=== PATIENT | female | born 1970 | race Two or more races ===

== ENCOUNTER 2017-10-28 05:17 | Inpatient (IN) | payer OTHER ==
[~2017-10-28] VITALS: Ht 157.5 cm; Wt 68.9 kg
[2017-10-28] VITALS (7 sets, daily range): BP systolic 102–116; BP diastolic 67–76
[2017-10-28] MEDS ORDERED: KETOROLAC TROMETHAMINE INJ 30 MG/ML VIAL ONE (06:00)
[2017-10-28] MEDS ORDERED: BUPIVACAINE 0.5 % PF 150 MG/30 ML VIAL ONE (06:00)
[2017-10-28] MEDS ORDERED: ANESTHESIA TRAY IN PYXIS 1 EA TRAY MC ONE (06:00)
[2017-10-28] MEDS ORDERED: BACITRACIN 50000 UNITS/VIAL ONE (06:01)
[2017-10-28] MEDS ORDERED: CEFAZOLIN SODIUM/DEXTROSE,ISO 100 ML IV ONE (06:09)
[2017-10-28] MEDS ORDERED: oxyCODONE HCL SR 10MG TAB.SR.12H PO ONE (06:09)
[2017-10-28] MEDS ORDERED: CELECOXIB 100 MG CAPSULE ONE (06:09)
[2017-10-28] MEDS ORDERED: MORPHINE SULFATE/PF 10 MG/10ML (1MG/ML) AMPUL ONE (06:33)
[2017-10-28] MEDS ORDERED: TRANEXAMIC ACID 3,000 MG in SODIUM CHLORIDE IRRIG SOLUTION 70 ML IR ONE (07:30)
[2017-10-28] MEDS ORDERED: DOCUSATE SODIUM 250 MG CAPSULE PO PRN (12:39)
[2017-10-28] MEDS: HYDROMORPHONE INJ 0.5 MG/0.5 ML SYRINGE IV PRN ×4 (12:42→22:38)
[2017-10-28] MEDS ORDERED: BISACODYL SUPP (10 MG) 10 MG/SUPP.RECT SUPP.RECT RC PRN ×2 (13:00→14:00)
[2017-10-28] MEDS ORDERED: ZOLPIDEM TARTRATE 5 MG TABLET PO PRN (13:00)
[2017-10-28] MEDS ORDERED: SENNOSIDES 8.6 MG TABLET PO PRN (13:00)
[2017-10-28] MEDS ORDERED: NALOXONE HCL 0.4 MG/ML AMPUL IV PRN ×2 (13:00→14:00)
[2017-10-28] MEDS ORDERED: CLONIDINE HCL 0.1 MG TABLET PO PRN (14:00)
[2017-10-28] MEDS ORDERED: MENTHOL/CETYLPYRD (CEPACOL) 1 LOZ LOZENGE MM PRN (14:00)
[2017-10-28] MEDS ORDERED: METOCLOPRAMIDE HCL 10 MG TABLET PO PRN (14:00)
[2017-10-28] MEDS ORDERED: MAGNESIUM HYDROXIDE 30 ML UDC PO PRN (14:00)
[2017-10-28] MEDS ORDERED: diphenhydrAMINE HCL 25 MG CAPSULE PO PRN (14:00)
[2017-10-28] MEDS ORDERED: PROMETHAZINE HCL 25 MG/ML AMPUL IM PRN (14:30)
[2017-10-28] MEDS: IV D5/0.45 NACL 1,000 ML IV PRN (15:08)
[2017-10-28] MEDS: CEFAZOLIN SODIUM 1 GM in IV SODIUM CHLORIDE 0.9% 50 ML IV SCH ×2 (15:59→22:34)
[2017-10-28] MEDS: DOCUSATE SODIUM 100 MG CAPSULE PO SCH (16:02)
[2017-10-28] MEDS: FAMOTIDINE/PF INJ 20 MG/2 ML VIAL IV SCH (21:00)
[2017-10-28] MEDS: methylPREDNISolone SOD SUCC 40 MG/ML VIAL IV SCH (21:00)
[2017-10-28] MEDS ORDERED: MORPHINE SULFATE INJ 4 MG/ML DISP.SYRIN ONE (21:49)
[2017-10-28] MEDS ORDERED: PANTOPRAZOLE 40 MG TABLET.DR PO SCH (22:00)
[2017-10-29] VITALS: BP 112/70
[2017-10-29] MEDS: IV D5/0.45 NACL 1,000 ML IV PRN (00:59)
[2017-10-29] MEDS: HYDROMORPHONE INJ 0.5 MG/0.5 ML SYRINGE IV PRN ×3 (01:12→06:01)
[2017-10-29 04:00] VITALS: BP 125/80
[2017-10-29] MEDS: ASPIRIN 325 MG TABLET PO SCH ×2 (07:22→18:06)
[2017-10-29 08:00] VITALS: BP 111/70
[2017-10-29] MEDS ORDERED: HYDROCODONE/APAP 10/325MG 1 EA TABLET PO PRN ×2 (08:00→12:00)
[2017-10-29] MEDS ORDERED: oxyCODONE IR immediate release 5 MG PO PRN ×2 (08:00→12:00)
[2017-10-29] MEDS ORDERED: MORPHINE SULFATE INJ 4 MG/ML DISP.SYRIN IM PRN ×2 (08:00→12:00)
[2017-10-29 08:01] LABS: HEMOGLOBIN 12.2 g/dL (11.5-14.8)
[2017-10-29] MEDS: FAMOTIDINE/PF INJ 20 MG/2 ML VIAL IV SCH ×2 (09:00→21:04)
[2017-10-29] MEDS: methylPREDNISolone SOD SUCC 40 MG/ML VIAL IV SCH (09:42)
[2017-10-29] MEDS: DOCUSATE SODIUM 100 MG CAPSULE PO SCH ×2 (09:42→18:06)
[2017-10-29 10:39] LABS: CALCIUM, SERUM 8.7 mg/dL (8.5-10.1); CREATININE 0.7 mg/dL (0.6-1.3); POTASSIUM 4.3 mmol/L (3.5-5.1)
[2017-10-29] MEDS ORDERED: HYDROMORPHONE 1 MG/1 ML DISP.SYRIN SQ PRN (11:30)
[2017-10-29] MEDS ORDERED: HYDROMORPHONE INJ 2 MG/ML DISP.SYRIN IV PRN (12:30)
[2017-10-29] MEDS: HYDROCODONE/APAP 10/325MG 1 EA TABLET PO SCH ×2 (14:49→18:06)
[2017-10-29 16:00] VITALS: BP 125/83
[2017-10-29] MEDS: HYDROMORPHONE INJ 2 MG/ML DISP.SYRIN IV PRN ×2 (16:22→19:39)
[2017-10-29 20:00] VITALS: BP 119/77
[2017-10-29] MEDS: oxyCODONE IR immediate release 5 MG PO PRN (21:24)
[2017-10-29] MEDS ORDERED: SCOPOLAMINE HBR 1 EA PATCH.TD72 TD PRN (22:00)
[2017-10-29] MEDS ORDERED: ALPRAZOLAM 0.25 MG TABLET PO PRN (22:00)
[2017-10-29] MEDS ORDERED: MAG HYDROX/AL HYDROX/SIMETH 30 ML UDC PO PRN (22:00)
[2017-10-30] MEDS: HYDROMORPHONE INJ 2 MG/ML DISP.SYRIN IV/SQ PRN ×2 (00:48→04:16)
[2017-10-30] MEDS: oxyCODONE IR immediate release 5 MG PO PRN ×4 (05:15→19:00)
[2017-10-30 07:19] LABS: BASOPHILS % (AUTO) 0.2 % (0.0-2.0); EOSINOPHILS # (AUTO) 0.1 /CMM (0.0-0.7); EOSINOPHILS % (AUTO) 1.5 % (0.0-6.0); HEMATOCRIT 34 % (33-45); HEMOGLOBIN 11.6 g/dL (11.5-14.8); LYMPHOCYTES # (AUTO) 2.7 /CMM (0.8-4.8); LYMPHOCYTES % (AUTO) 35.3 % (20.0-44.0); MEAN CORPUSCULAR HEMOGLOBIN 31 PG (26.0-33.0); MEAN CORPUSCULAR HGB CONC 34 g/dl (31.0-36.0); MEAN CORPUSCULAR VOLUME 89 fL (82-100); MONOCYTES # (AUTO) 0.9 /CMM (0.1-1.30); MONOCYTES % (AUTO) 11.7 % (2.0-12.0); NEUTROPHILS # (AUTO) 3.9 /CMM (1.8-8.9); NEUTROPHILS % (AUTO) 51.3 % (43.0-81.0); PLATELET COUNT (AUTO) 217 /CMM (150-450); RDW COEFFICIENT OF VARIATION 13.4 (11.5-15.0); WHITE BLOOD COUNT (AUTO) 7.6 K/uL (4.3-11.0)
[2017-10-30] MEDS: HYDROMORPHONE INJ 0.5 MG/0.5 ML SYRINGE IV/SQ PRN ×4 (07:37→19:35)
[2017-10-30 07:49] LABS: CALCIUM, SERUM 8.4 mg/dL (8.5-10.1); CREATININE 0.7 mg/dL (0.6-1.3); MAGNESIUM 2.2 mg/dL (1.8-2.4); PHOSPHORUS 3.1 mg/dL (2.5-4.9); POTASSIUM 3.7 mmol/L (3.5-5.1)
[2017-10-30 08:00] VITALS: BP 110/70
[2017-10-30] MEDS ORDERED: FAMOTIDINE (20 MG) 20 MG TABLET PO SCH (09:00)
[2017-10-30] MEDS ORDERED: predniSONE 20 MG TABLET PO SCH (09:00)
[2017-10-30] MEDS: DOCUSATE SODIUM 100 MG CAPSULE PO SCH ×2 (09:55→16:33)
[2017-10-30] MEDS: ASPIRIN 325 MG TABLET PO SCH ×2 (09:55→16:33)
[2017-10-30] MEDS ORDERED: OXYC-128 PO (13:42)
[2017-10-30 16:00] VITALS: BP 121/76
== END 2017-10-30 20:00 | disposition home or self-care (01) | DRG 470 ==
LOC: DS 05:17 → MED 09:41 → TELE 22:09 → MED 10-29 09:23
PROVIDERS: ADMIT Specialist; ATTEND Specialist
PROC: 0SRC0J9 Replacement of Right Knee Joint with Synthetic Substitute, Cemented, Open Approach (ICD-10-PCS; principal; 2017-10-28 06:30)
DX: M17.11 Unilateral primary osteoarthritis, right knee (principal); E66.9 Obesity, unspecified; F41.9 Anxiety disorder, unspecified; J45.909 Unspecified asthma, uncomplicated; Z79.82 Long term (current) use of aspirin; Z96.659 Presence of unspecified artificial knee joint; Z68.27 Body mass index [BMI] 27.0-27.9, adult
CPT/HCPCS: 36415; 80048-TC; 83540-TC; 83735-TC; 84100-TC; 84703-TC; 85025-TC; 85027-TC; 86850-TC; 86921-TC; 87081-TC; 88305-TC; 88311-TC; 97110-TC; 97116-TC; 97530-TC; 97760-TC; A4216; A4217; A6402; C1713; J0690; J1170; J1885; J2270; J2274; J2920; J3490; J7120; L1830; Z7610